=== PATIENT | female | born 1980 | race Two or more races ===

== ENCOUNTER 2019-01-25 20:26 | Emergency (ER) | payer MEDICAID ==
[~2019-01-25] VITALS: Ht 154.9 cm; Wt 81.8 kg
[~2019-01-25 20:26] MED LIST: ALBU8.5H8 INH; INHA1EAC68 MC; OMEP20TA5 PO; SUCR1ORA2 PO
[2019-01-25] MEDS ORDERED: ipratropium/albuterol 3ml nebule NEB ONE (21:20)
[2019-01-25] MEDS ORDERED: predniSONE 20 mg tablet PO ONE (21:20)
[2019-01-25] MEDS ORDERED: PRED20TA PO (21:36)
[2019-01-25] MEDS ORDERED: AMOX-419 PO (21:36)
[2019-01-25] MEDS ORDERED: GUAI120015 PO (21:36)
[2019-01-25] MEDS ORDERED: ALBU6.7H9 INH (21:36)
[2019-01-25 22:02] VITALS: BP 115/65
== END 2019-01-25 22:07 | disposition home or self-care (01) ==
LOC: ER 20:29
DX: J20.9 Acute bronchitis, unspecified (principal); F17.299 Nicotine dependence, other tobacco product, with unspecified nicotine-induced disorders; Z79.899 Other long term (current) drug therapy
CPT/HCPCS: 71046; 93005; 94640; 94760; 99283; 99406; J7512

== ENCOUNTER 2019-02-01 10:59 | Emergency (ER) | payer MEDICAID ==
[~2019-02-01] VITALS: Ht 157.5 cm; Wt 90.0 kg
[~2019-02-01 10:59] MED LIST changes: +ALBU6.7H9 INH; +AMOX-419 PO; +GUAI120015 PO; +PRED20TA PO
[2019-02-01] MEDS ORDERED: ipratropium/albuterol 3ml nebule NEB ONE (12:00)
[2019-02-01 12:07] LABS: BASOPHILS # (AUTO) 0.1 X10'3 (0-0.2); BASOPHILS % (AUTO) 1.5 % (0-1); EOSINOPHILS # (AUTO) 0.2 X10'3 (0-0.9); EOSINOPHILS % (AUTO) 1.9 % (0-6); HEMATOCRIT 41.1 % (35.0-45.0); LYMPHOCYTES # (AUTO) 2.7 X10'3 (1.1-4.8); LYMPHOCYTES % (AUTO) 31.1 % (21-51); MEAN CORPUSCULAR HEMOGLOBIN 29.2 PG (27.0-31.0); MONOCYTES # (AUTO) 0.8 X10'3 (0-0.9); NEUTROPHILS # (AUTO) 4.9 X10'3 (1.8-7.7); NEUTROPHILS % (AUTO) 56.5 % (42-75); PLATELET COUNT 338 X10'3 (140-440); RED BLOOD COUNT 4.78 X10'6 (4.20-5.60); RED CELL DISTRIBUTION WIDTH 12.8 % (11.5-14.5); WHITE BLOOD COUNT 8.6 X10'3 (4.5-11.0)
[2019-02-01 12:28] LABS: ALANINE AMINOTRANSFERASE 29 U/L (12-78); ALBUMIN 3.2 G/DL (3.4-5.0); ALBUMIN/GLOBULIN RATIO 0.6 (1.1-1.5); ALKALINE PHOSPHATASE 74 IU/L (46-116); ANION GAP 7 (8-16); ASPARTATE AMINO TRANSFERASE 21 U/L (10-37); BILIRUBIN,TOTAL 0.2 MG/DL (0.1-1.0); BLOOD UREA NITROGEN 7 MG/DL (7-18); BUN/CREATININE RATIO 11.3 (6.6-38.0); CALCIUM 8.6 MG/DL (8.5-10.1); CHLORIDE 106 MMOL/L (99-107); CREATININE 0.62 MG/DL (0.40-0.90); GLUCOSE 86 MG/DL (70-104); POTASSIUM 3.7 MMOL/L (3.5-5.1); SODIUM 141 MMOL/L (135-145); TOTAL CARBON DIOXIDE 27.6 MMOL/L (24-32); TOTAL PROTEIN 8.3 G/DL (6.4-8.2); eGFR > 90 ML/MIN
[2019-02-01] MEDS ORDERED: PRED20TA PO (12:34)
[2019-02-01 12:45] VITALS: BP 127/77
== END 2019-02-01 12:50 | disposition home or self-care (01) ==
LOC: ER 10:59
DX: J20.9 Acute bronchitis, unspecified (principal); F17.210 Nicotine dependence, cigarettes, uncomplicated; Z71.6 Tobacco abuse counseling; Z79.899 Other long term (current) drug therapy
CPT/HCPCS: 36415; 71045; 80053; 85025; 94640; 94760; 99284; 99406

== ENCOUNTER 2023-09-26 18:30 | Emergency (ER) | payer BC, MEDICAID ==
[~2023-09-26] VITALS: Ht 157.5 cm; Wt 86.4 kg
[~2023-09-26 18:30] MED LIST changes: +ALBU6.7H14 INH; -ALBU6.7H9 INH; +ALBU8.5H17 INH; -ALBU8.5H8 INH; -AMOX-419 PO; +OMEP20TA43 PO; -OMEP20TA5 PO; -PRED20TA PO
[2023-09-26 18:53] VITALS: BP 152/92; PULSE 90; O2SAT 96
[2023-09-26] MEDS ORDERED: MELO-100 PO (20:32)
[2023-09-26] MEDS: ketorolac tromethamine 15mg/ml inj. IM ONE (20:47)
[2023-09-26] MEDS: dexamethasone sod phosphate 10mg/ml inj IM STA (20:47)
[2023-09-26 21:18] VITALS: RESP 16; TEMP 97.8
== END 2023-09-26 20:40 | disposition home or self-care (01) ==
LOC: ER 18:31
DX: M25.561 Pain in right knee (principal); Z79.899 Other long term (current) drug therapy; Z79.2 Long term (current) use of antibiotics
CPT/HCPCS: 73564; 99283